=== PATIENT | male | born 1980 | race Two or more races ===

== ENCOUNTER 2017-09-08 16:19 | Emergency (ER) | payer BC ==
[~2017-09-08] VITALS: Ht 185.4 cm; Wt 79.4 kg
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
[2017-09-08] MEDS ORDERED: TDAP [DIPH/PERTUSSIS/TET] 0.5 ML VIAL IM ONE (16:51)
[2017-09-08] MEDS ORDERED: IBUPROFEN 600 MG TABLET PO ONE (16:51)
--- NOTE | 2017-09-08 17:00 | NUR ---
RAJ AT BS.
[2017-09-08] MEDS: TDAP [DIPH/PERTUSSIS/TET] 0.5 ML VIAL IM ONE (17:04)
[2017-09-08] MEDS: IBUPROFEN 600 MG TABLET PO ONE (17:05)
--- NOTE | 2017-09-08 17:05 | NUR ---
PT MEDICATED ORDERED.
[2017-09-08 18:04] VITALS: BP 115/64
== END 2017-09-08 18:06 | disposition home or self-care (01) ==
LOC: ER 16:25
DX: S43.401A Unspecified sprain of right shoulder joint, initial encounter (principal); S53.401A Unspecified sprain of right elbow, initial encounter; S40.211A Abrasion of right shoulder, initial encounter; S50.311A Abrasion of right elbow, initial encounter; V87.8XXA Person injured in other specified noncollision transport accidents involving motor vehicle (traffic), initial encounter; Y93.89 Activity, other specified; Y92.89 Other specified places as the place of occurrence of the external cause; Y99.8 Other external cause status
CPT/HCPCS: 73030-TC; 73080-TC; 90715; A4606; A6402; Z7610

== ENCOUNTER 2022-08-02 12:10 | Emergency (ER) | payer BC ==
[~2022-08-02] VITALS: Ht 182.9 cm; Wt 81.6 kg
[2022-08-02 12:21] VITALS: BP 124/74
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
[2022-08-02] MEDS ORDERED: IBUP-1955 PO (14:22)
== END 2022-08-02 14:35 | disposition home or self-care (01) ==
LOC: ER 12:26
DX: S63.601A Unspecified sprain of right thumb, initial encounter (principal); W01.0XXA Fall on same level from slipping, tripping and stumbling without subsequent striking against object, initial encounter; Y93.89 Activity, other specified; Y92.89 Other specified places as the place of occurrence of the external cause; Y99.8 Other external cause status
CPT/HCPCS: 73130-TC